=== PATIENT | female | born 1960 | race Caucasian/White ===

== ENCOUNTER 2018-08-18 15:20 | Emergency (ER) | payer SELFPAY ==
[2018-08-18 15:20] VITALS: BMI 31.8
--- NOTE | 2018-08-18 16:32 | ED PDOC ---
HPI: CCC, URI, Sore Throat Chief Complaint (Provider): cough,cold, chest discomfort History Per: Patient History/Exam Limitations: no limitations Have you had recent travel within the past 21 days to any of the following countries: [place], [place], [place] or [place]?: No Onset/Duration Of Symptoms: Days (6-7) Current Symptoms Are (Timing): Still Present Location Of Pain: Other (head, chest) Sick Contacts (Context): None Associated Symptoms: Fever (subjective), Sore Throat, Cough, Nasal Congestion. denies: Chills, Sputum, Nausea, Vomiting, Diarrhea Additional Complaint(s): 58 yo F with history of htn presented to ED for eval of cough and congestion x1 week, as well as intermittent chest pain. Has had dry cough x1 week, as well as nasal congestion, clear rhinorrhea and throat irritation. No sick contacts, no recent travel. Subjective tactile fevers but has not checked w/ thermometer. No nausea, vomiting, diarrhea, decreased PO intake. Has been taking robitussin, zyrtec, theraflu. Chest pain happened 2x in the past week, felt 1-2 minutes of painful sensation on left side of chest. No radiation to arms or jaw, no diaphoresis. No history of cardiac issues aside from htn; takes norvasc 5mg twice a day. PMD: Dr. Lin <Susan Sadler - Last Filed: 08/18/18 18:36> <Caden Hairston - Last Filed: 08/19/18 10:57> Time Seen by Provider: 08/18/18 15:53 Chief Complaint (Nursing): Cough, Cold, Congestion Supervising Attending Note - Supervising Attending Note The Documented history was done by the: Physician Sanding Machine Tender Automatic, Attending Physician The documented physical exam was done by the: Physician Sanding Machine Tender Automatic, Attending Physician The documented procedures were done by the: Physician Sanding Machine Tender Automatic, Attending Physician - Attestation: I have personally seen and examined this patient.: Yes I have fully participated in the care of the patient.: Yes I have reviewed all pertinent clinical information, including history, physical exam and plan: Yes <Caden Hairston - Last Filed: 08/19/18 10:57> Past Medical History Reviewed: Vital Signs Vital Signs: Last Vital Signs Temp 98.2 F 08/18/18 15:44 Pulse 101 H 08/18/18 15:44 Resp 18 08/18/18 15:44 BP 144/73 08/18/18 15:44 Pulse Ox 94 L 08/18/18 15:44 - Medical History PMH: HTN Denies: Chronic Kidney Disease - Surgical History Surgical History: Appendectomy - Family History Family History: States: Unknown Family Hx - Living Arrangements Living Arrangements: Alone - Social History Alcohol: None Drugs: Denies <Susan Sadler - Last Filed: 08/18/18 18:36> Reviewed: Historical Data, Nursing Documentation Vital Signs: Last Vital Signs Temp 98.2 F 08/18/18 15:44 Pulse 101 H 08/18/18 15:44 Resp 18 08/18/18 15:44 BP 144/73 08/18/18 15:44 Pulse Ox 94 L 08/18/18 16:59 <Caden Hairston - Last Filed: 08/19/18 10:57> - Home Medications Home Medications: Ambulatory Orders Medication Instructions Recorded RX: Ascorbic Acid/Bioflavonoid 1 tab PO DAILY 03/06/15 [Vitamin C] RX: Fish Oil 1 iu PO DAILY 03/06/15 RX: Vitamin E [Tocopheryl] 400 iu PO DAILY 03/06/15 RX: amLODIPine [Norvasc] 5 mg PO DAILY 03/06/15 Oxycodone HCl/Acetaminophen 1 tab PO Q4H PRN #0 tab 03/08/15 [Percocet 325 mg-5 mg] RX: Albuterol HFA [Ventolin HFA 90 2 puff IH [id number] #1 inh 08/18/18 mcg/actuation (8 g)] RX: Azithromycin [Z-Raymundo] 250 mg PO ASDIR #6 tab 08/18/18 - Allergies Allergies/Adverse Reactions: Allergies Allergy/AdvReac Type Severity Reaction Status Date / Time No Known Allergies Allergy Verified 05/06/16 11:51 Curb-65 Severity Score - CURB-65 Severity Score Confusion: No Bun >19mg/dl (>7mmol/L): No Respiratory Rate greater than/equal to 30: No Systolic BP <90 or Diastolic BP less than/equal 60mmHg: No Age >64: No Curb-65 Score: 0 Percentage 30-day mortality: 0.6% <Susan Sadler - Last Filed: 08/18/18 18:36> Review of Systems Constitutional: Positive for: Fever. Negative for: Sweats Eyes: Negative for: Vision Change ENT: Positive for: Nose Discharge, Nose Congestion, Throat Pain. Negative for: Ear Pain Cardiovascular: Positive for: Chest Pain Respiratory: Positive for: Cough. Negative for: Shortness of Breath, Wheezing Gastrointestinal: Negative for: Nausea, Vomiting, Abdominal Pain, Diarrhea, Constipation Genitourinary Female: Negative for: Dysuria Skin: Negative for: Rash <Susan Sadler - Last Filed: 08/18/18 18:36> ROS Statement: Except As Marked, All Systems Reviewed And Found Negative <YovannyStefanedita Shayne - Last Filed: 08/19/18 10:57> Physical Exam - Reviewed Nursing Documentation Reviewed: Yes Vital Signs Reviewed: Yes - Physical Exam Appears: Positive for: No Acute Distress Head Exam: Positive for: ATRAUMATIC Skin: Positive for: Normal Color, Warm, Dry. Negative for: Diaphoresis Eye Exam: Positive for: Normal appearance, EOMI, PERRL ENT: Positive for: Pharynx Is (clear of erythema or exudates), Nasal Congestion Neck: Positive for: Painless ROM, Supple Cardiovascular/Chest: Positive for: Regular Rate, Rhythm, Chest Non Tender Respiratory: Positive for: Normal Breath Sounds. Negative for: Wheezing, Respiratory Distress Gastrointestinal/Abdominal: Positive for: Bowel Sounds, Soft. Negative for: Tenderness Extremity: Positive for: Other (trace nonpitting edema). Negative for: Tenderness, Calf Tenderness Lymphatic: Positive for: Other (no cervical lymphadenopathy) Neurologic/Psych: Positive for: Alert, Oriented <Susan Sadler - Last Filed: 08/18/18 18:36> - Reviewed Nursing Documentation Reviewed: Yes <YovannyShyamjeff Shayne - Last Filed: 08/19/18 10:57> - Laboratory Results Result Diagrams: 08/18/18 17:04 08/18/18 17:04 - ECG O2 Sat by Pulse Oximetry: 94 <Susan Sadler - Last Filed: 08/18/18 18:36> - Laboratory Results Result Diagrams: 08/18/18 17:04 08/18/18 17:04 Lab Results: Troponin I < 0.0120 ng/mL (0.00-0.120) 08/18/18 17:04 <Caden Hairston - Last Filed: 08/19/18 10:57> Medical Decision Making Medical Decision Makin yo F with dry cough, congestion, rhinorrhea; 2 episodes chest pain. - EKG - CBC - Troponin - BMP - Influenza A/B 1650 EKG NSR. Flu neg Trop neg CBC and BMP grossly unremarkable CXR clear Patient discussed w/ Dr. Hairston; stable for d/c home and advised f/u with PMD. <Susan Sadler - Last Filed: 08/18/18 18:36> Disposition <Susan Sadler - Last Filed: 08/18/18 18:36> - Patient ED Disposition Is Patient to be Admitted: No Doctor Will See Patient In The: Office Counseled Patient/Family Regarding: Studies Performed, Diagnosis, Need For Followup - Disposition Disposition: Routine/Home Disposition Time: 18:28 <Caden Hairston - Last Filed: 08/19/18 10:57> - Clinical Impression Clinical Impression: Cough, Chest pain - Disposition Referrals: [facility] [Outside] Condition: GOOD Additional Instructions: CRYSTAL GARCIA, thank you for letting us take care of you today. Your provider was Caden aHirston MD and you were treated for CONGESTION,COLD. The emergency medical care you received today was directed at your acute symptoms. If you were prescribed any medication, please fill it and take as directed. It may take several days for your symptoms to resolve. Return to the Emergency Department if your symptoms worsen, do not improve, or if you have any other problems. Please contact your doctor or call one of the physicians/clinics you have been referred to that are listed on the Patient Visit Information form that is included in your discharge packet. Bring any paperwork you were given at discharge with you along with any medications you are taking to your follow up visit. Our treatment cannot replace ongoing medical care by a primary care provider outside of the emergency department. Thank you for allowing the [facility] team to be part of your care today. If you had an X-Ray or CT scan: A Radiologist will review the ED reading if any change in treatment is needed we will contact you. If you had a blood, urine, or wound culture: It will take several days for the results, if any change in treatment is needed we will contact you. If you had an STI test: It will take 48 hours for the results. Please call after 1 week if you have not heard back. Prescriptions: RX: Albuterol HFA [Ventolin HFA 90 mcg/actuation (8 g)] 2 puff IH [id number] #1 inh RX: Azithromycin [Z-Raymundo] 250 mg PO ASDIR #6 tab Instructions: Acute Bronchitis, Chest Pain (DC) Forms: [employer] (Italian)
[2018-08-18 17:12] LABS: BASO % 0.7 % (0.0-2.0); EOS % 0.9 % (0.0-4.0); LYMPH # 1.6 K/uL (1.0-4.3); LYMPH % 28.7 % (20.0-40.0); MEAN CELL VOLUME 94.3 fl (81.0-99.0); MEAN CORPUSCULAR HEMOGLOBIN 31.1 pg (27.0-31.0); MEAN PLATELET VOLUME 7.2 fl (7.2-11.7); MONO # 0.3 K/uL (0.0-0.8); NEUT # 3.6 K/uL (1.8-7.0); NEUT % 63.7 % (50.0-75.0); NRBC % 0.1 % (0.0-0.0); RBC 4.18 Mil/uL (3.80-5.20); RED CELL DISTRIBUTION WIDTH 13.9 % (11.5-14.5); WHITE BLOOD COUNT 5.6 K/uL (4.8-10.8)
[2018-08-18 17:17] LABS: BLOOD UREA NITROGEN 13 mg/dl (7-17); CALCIUM 9.1 mg/dL (8.4-10.2); GFR NON-AFRICAN AMERICAN > 60
--- NOTE | 2018-08-18 17:50 | RAD ---
Date of service: 08/18/2018 HISTORY: Cough. COMPARISON: 05/06/2016 TECHNIQUE: Chest PA and lateral FINDINGS: LUNGS: No active pulmonary disease. PLEURA: No significant pleural effusion identified. No pneumothorax apparent. CARDIOVASCULAR: No aortic atherosclerotic calcification present. No radiographic findings to suggest acute or significant cardiovascular disease. No pulmonary vascular congestion. OSSEOUS STRUCTURES: No significant abnormalities. VISUALIZED UPPER ABDOMEN: Normal. OTHER FINDINGS: None. IMPRESSION: No active disease. No significant interval change compared to the prior examination(s).
[2018-08-18 19:00] VITALS: BP 133/86; PULSE 84; RESP 14; TEMP 98.4; O2SAT 99
== END 2018-08-18 18:58 | disposition home or self-care (01) ==
LOC: H.ER 15:20
DX: R05 Cough (principal); R07.89 Other chest pain; I10 Essential (primary) hypertension